=== PATIENT | male | born 1950 | race Caucasian/White ===

== ENCOUNTER 2019-05-21 18:01 | Emergency (ER) | payer MEDICARE, MEDICAID ==
[~2019-05-21] VITALS: Ht 167.6 cm; Wt 55.6 kg
[~2019-05-21 18:01] MED LIST: LIDOcaine 1% W/epiNEPHrine 1:100,000 20ml vial ONE
[2019-05-21] MEDS ORDERED: ondansetron 4mg rapidly disintigrating tab PO ONE (19:10)
[2019-05-21] MEDS ORDERED: ketorolac trometh inj. 60 MG/2 ML VIAL IM ONE (19:10)
--- NOTE | 2019-05-21 19:12 | NUR ---
xray at bedside
[2019-05-21] MEDS ORDERED: acetaminophen 325mg tablet PO ONE (19:30)
--- NOTE | 2019-05-21 19:39 | NUR ---
MOVED PT FROM ROOM 1 TO ROOM 2
[2019-05-21] MEDS ORDERED: HYDR-3965 PO (20:03)
[2019-05-21] MEDS ORDERED: ONDA8TAB6 PO (20:03)
--- NOTE | 2019-05-21 20:03 | NUR ---
x ray back at bedside
[2019-05-21 20:38] VITALS: BP 145/96
== END 2019-05-21 20:48 | disposition home or self-care (01) ==
LOC: ER 18:01
DX: S42.302A Unspecified fracture of shaft of humerus, left arm, initial encounter for closed fracture (principal); Z60.2 Problems related to living alone; Z88.6 Allergy status to analgesic agent; Z79.899 Other long term (current) drug therapy; W01.0XXA Fall on same level from slipping, tripping and stumbling without subsequent striking against object, initial encounter; Y93.89 Activity, other specified; Y92.89 Other specified places as the place of occurrence of the external cause; Y99.8 Other external cause status
CPT/HCPCS: 20552; 73030; 96372; 99284; J1885